=== PATIENT | female | born 1980 | race African-American/Black ===

== ENCOUNTER 2017-02-11 11:53 | Emergency (ER) | payer MEDICARE, MEDICAID ==
[~2017-02-11] VITALS: Ht 170.2 cm; Wt 110.7 kg
[2017-02-11 12:21] VITALS: BP 129/70
== END 2017-02-11 19:09 | disposition left against medical advice (07) ==
LOC: ER 12:36
DX: R10.9 Unspecified abdominal pain (principal); Z53.21 Procedure and treatment not carried out due to patient leaving prior to being seen by health care provider